=== PATIENT | female | born 1950 | race Caucasian/White ===

== ENCOUNTER 2017-07-14 05:26 | Day surgery (SDC) | payer MEDICARE, OTHER, SELFPAY ==
[2017-07-14] VITALS (7 sets, daily range): BP systolic 76–119; BP diastolic 37–70; PULSE 52–69; RESP 16–65; TEMP 36.1–36.8; O2SAT 95–98; BMI 28.6
--- NOTE | 2017-07-14 06:05 | PCM.HP.STD ---
Problem List (1) Family history of colon cancer in mother Status: Acute History of Present Illness Date of Admission: 07/14/17 The patient is a 67 year old F who presents for screening colonoscopy. She has had 2 previous colonoscopies. Approximately in 2004 and in 2011. She states I performed both those for her. She has a family history of colon cancer in her mother. The patient denies any abdominal pain. No bright red blood per rectum or melena. No unexpected weight loss. She otherwise has been enjoying good current health. Past Medical History Allergies latex Allergy (Verified 07/06/17 08:41) Rash Penicillins Allergy (Verified 07/06/17 08:41) Nausea/Vom/Diarrhea Home Medications: Ambulatory Orders Medication Instructions Recorded Ascorbic Acid [Vitamin C] 500 mg PO DAILY 07/06/17 Aspirin E.C. [Ecotrin] 325 mg PO DAILY@0800 07/06/17 Ca/D3/Mag Ox/Zinc/Trim Stencil Maker/Laureano/Bor 2 each PO DAILY 07/06/17 [Calcium [id number]-[id number] [facility] Tb] Cholecalciferol (VIT D3) [Vitamin 2,000 unit PO DAILY 07/06/17 D] Diltiazem CD [Cardizem CD] 240 mg PO DAILY 07/06/17 Docusate Sodium [Stool Softener] 100 mg PO DAILY 07/06/17 Fluoxetine [Prozac] 10 mg PO DAILY 07/06/17 Lisinopril [Prinivil] 10 mg PO DAILY 07/06/17 Methylcellulose [Fiber Therapy] 500 mg PO DAILY 07/06/17 Multivit with Calcium,Iron,Min 1 each PO DAILY 07/06/17 [Multiple Vitamins For Women] Naproxen Sodium [Aleve] 220 mg PO BID 07/06/17 Potassium 595 mg PO DAILY 07/06/17 Simvastatin [Zocor] 40 mg PO QHS 07/06/17 Ubidecarenone [Coq10] 100 mg PO DAILY 07/06/17 Vitamin E 400 unit PO DAILY 07/06/17 Smoking Status: Never smoker Review of Systems Constitutional: Denies: Weight Change Eyes: Denies: Blurred vision, Vision Change HEENT: Denies: Ear Pain, Eye Pain Cardiovascular: Denies: Chest Pain, Claudication Respiratory: Denies: Cough, Shortness of Breath Gastrointestinal: Denies: Hematemesis, Hematochezia Genitourinary: Denies: Dysuria, Hematuria Musculoskeletal: Denies: Leg Pain Skin: Denies: Jaundice Neurological: Denies: Confusion Psychiatric: Denies: Depression Endocrine: Denies: Change in Body Habitus Hematologic/ Lymphatic: Denies: Easy Bleeding VTE Information - Inpt Only VTE Present on Admission: No Patient Problems: Active and Suspected Problems Family history of colon cancer in mother (Acute) - Physical Exam General: Alert, Oriented x3, Cooperative HEENT: Atraumatic Oral: Moist Mucosa Neck: Supple Lungs: Clear to auscultation Cardiovascular: Regular rate Abdomen: Bowel Sounds Present Extremities: No clubbing Skin: No rashes Musculoskeletal: No Tenderness to Palpation of Joints or Extremities Neurological: Cranial nerves II-XII grossly intact Psych/Mental Status: Normal Affect Assessment/Plan Active and Suspected Problems Family history of colon cancer in mother (Acute) I am recommending a screening colonoscopy and we have discussed the technique, benefits, risks, alternatives. She has had an opportunity to ask and have questions answered. We will proceed at her discretion. John Talley M.D., F.A.C.S.
--- NOTE | 2017-07-14 06:08 | HP.PCM_ITS ---
Problem List (1) Family history of colon cancer in mother Status: Acute History of Present Illness Date of Admission: 07/14/17 The patient is a 67 year old F who presents for screening colonoscopy. She has had 2 previous colonoscopies. Approximately in 2004 and in 2011. She states I performed both those for her. She has a family history of colon cancer in her mother. The patient denies any abdominal pain. No bright red blood per rectum or melena. No unexpected weight loss. She otherwise has been enjoying good current health. Past Medical History Allergies latex Allergy (Verified 07/06/17 08:41) Rash Penicillins Allergy (Verified 07/06/17 08:41) Nausea/Vom/Diarrhea Home Medications: Ambulatory Orders Medication Instructions Recorded Ascorbic Acid [Vitamin C] 500 mg PO DAILY 07/06/17 Aspirin E.C. [Ecotrin] 325 mg PO DAILY@0800 07/06/17 Ca/D3/Mag Ox/Zinc/Exceptional Children Teacher Assistant/Laureano/Bor 2 each PO DAILY 07/06/17 [Calcium [id number]-[id number] [facility] Tb] Cholecalciferol (VIT D3) [Vitamin 2,000 unit PO DAILY 07/06/17 D] Diltiazem CD [Cardizem CD] 240 mg PO DAILY 07/06/17 Docusate Sodium [Stool Softener] 100 mg PO DAILY 07/06/17 Fluoxetine [Prozac] 10 mg PO DAILY 07/06/17 Lisinopril [Prinivil] 10 mg PO DAILY 07/06/17 Methylcellulose [Fiber Therapy] 500 mg PO DAILY 07/06/17 Multivit with Calcium,Iron,Min 1 each PO DAILY 07/06/17 [Multiple Vitamins For Women] Naproxen Sodium [Aleve] 220 mg PO BID 07/06/17 Potassium 595 mg PO DAILY 07/06/17 Simvastatin [Zocor] 40 mg PO QHS 07/06/17 Ubidecarenone [Coq10] 100 mg PO DAILY 07/06/17 Vitamin E 400 unit PO DAILY 07/06/17 Smoking Status: Never smoker Review of Systems Constitutional: Denies: Weight Change Eyes: Denies: Blurred vision, Vision Change HEENT: Denies: Ear Pain, Eye Pain Cardiovascular: Denies: Chest Pain, Claudication Respiratory: Denies: Cough, Shortness of Breath Gastrointestinal: Denies: Hematemesis, Hematochezia Genitourinary: Denies: Dysuria, Hematuria Musculoskeletal: Denies: Leg Pain Skin: Denies: Jaundice Neurological: Denies: Confusion Psychiatric: Denies: Depression Endocrine: Denies: Change in Body Habitus Hematologic/ Lymphatic: Denies: Easy Bleeding VTE Information - Inpt Only VTE Present on Admission: No Patient Problems: Active and Suspected Problems Family history of colon cancer in mother (Acute) - Physical Exam General: Alert, Oriented x3, Cooperative HEENT: Atraumatic Oral: Moist Mucosa Neck: Supple Lungs: Clear to auscultation Cardiovascular: Regular rate Abdomen: Bowel Sounds Present Extremities: No clubbing Skin: No rashes Musculoskeletal: No Tenderness to Palpation of Joints or Extremities Neurological: Cranial nerves II-XII grossly intact Psych/Mental Status: Normal Affect Assessment/Plan Active and Suspected Problems Family history of colon cancer in mother (Acute) I am recommending a screening colonoscopy and we have discussed the technique, benefits, risks, alternatives. She has had an opportunity to ask and have questions answered. We will proceed at her discretion. John Talley M.D., F.A.C.S.
--- NOTE | 2017-07-14 06:49 | PCM.OPRPT ---
Problem List (1) Family history of colon cancer in mother Status: Acute Report of Operation Date of Procedure: 07/14/17 Pre-Operative Diagnosis: Family history of colon cancer in her mother Post-Operative Diagnosis: Extensive pancolonic diverticulosis Surgery/Procedure Performed:: Colonoscopy Description of Surgical Findings:: Timeout and informed consent was obtained. 67-year-old female was taken to the endoscopy suite. She was placed in a left lateral decubitus position. Throughout the procedure in aliquots she received a total of 100 mg Demerol and 3 mg Versed as intravenous sedation. Digital rectal exam performed. Grade 2 hemorrhoids. No mass lesions. Flexible colonoscope inserted in the rectum advanced through a tortuous sigmoid colon extensively involved with diverticulosis. The scope was then readily advanced to the transverse colon. With transabdominal pressure the scope was advanced to the cecum. The cecum and ileocecal valve area was nicely achieved. Bowel prep was good. The scope was carefully withdrawn from the ascending transverse descending and sigmoid colon. Scattered diverticulosis was noted throughout the colon. Extensive diverticular disease was noted of the descending and sigmoid colon. There is no evidence of acute inflammation. The scope was retroflexed within the rectum. Hemorrhoidal changes noted. No active bleeding. Excess fluid and air was aspirated free the procedure was completed with the patient tolerating it well. Impression Pancolonic diverticulosis. Extensive diverticular disease of the descending and sigmoid colon. Recommendations for follow-up colonoscopy in 5 years as previous colonoscopy had been 2012 John Talley M.D., F.A.C.S. Medications were given at 0627. Procedure initiated at 0630. Cecum reached at 0639.18. Procedure completed at 0646 Type of Anesthesia:: IV Sedation
== END 2017-07-14 07:40 | disposition home or self-care (01) ==
LOC: EN 05:27 → AC 05:28
PROVIDERS: Family Provider Internal Medicine; PCP Internal Medicine; Visit Provider Surgery
PROC: 0DJD8ZZ Inspection of Lower Intestinal Tract, Via Natural or Artificial Opening Endoscopic (ICD-10-PCS; CPT 45378; principal; 2017-07-14 06:25)
DX: Z12.11 Encounter for screening for malignant neoplasm of colon (principal); K57.30 Diverticulosis of large intestine without perforation or abscess without bleeding; K64.1 Second degree hemorrhoids; Z79.82 Long term (current) use of aspirin; Z79.1 Long term (current) use of non-steroidal anti-inflammatories (NSAID); Z79.899 Other long term (current) drug therapy; Z80.0 Family history of malignant neoplasm of digestive organs
CPT/HCPCS: G0105; J7120

== ENCOUNTER → 2017-11-03 11:50 | Outpatient (CLI) | payer MEDICARE, OTHER, SELFPAY ==
--- NOTE | 2017-11-03 11:52 | BI_ITS ---
MAMMOGRAPHY - BILATERAL SCREENING REASON FOR EXAM: Female, 67 years old. Routine annual screening examination. PERTINENT HISTORY: Aunt with breast cancer. TECHNIQUE: Digital bilateral breast dorothea (3D mammographic acquisition) in the CC and MLO projections. 2-D mediolateral oblique (MLO) and craniocaudad (CC) views of both breasts were obtained. CAD: Full Field Digital Mammography with Computer Added Detection was performed. COMPARISON: Comparison is made with prior study dated October 10, 2016 and October 07, 2015. FINDINGS: Breast Composition: The breasts are almost entirely fatty. There are no dominant masses or suspicious calcifications. Stable bilateral benign appearing axillary lymph nodes. No other significant abnormalities are identified. There has been no significant change since the prior study. BI/SCREENING MAMM (CAD), BILAT IMPRESSION: Stable bilateral screening mammogram. Yearly follow-up mammogram recommended. (A) ASSESSMENT CATEGORY: BIRADS Category 2: Benign. A letter regarding these results will be sent to the patient by the facility within 30 days. Approximately 10% of breast cancers are not detected by mammography. A normal mammogram should not delay biopsy of a clinically suspicious abnormality. [id number] Electronically Signed: Naldo Santos MD at 14:11 EDT Tel [phone], Service support ,
== END ==
PROVIDERS: Family Provider Internal Medicine; PCP Internal Medicine; Visit Provider Internal Medicine
DX: Z12.31 Encounter for screening mammogram for malignant neoplasm of breast (principal)
CPT/HCPCS: 77063; 77067

== ENCOUNTER 2018-08-13 14:54 | Inpatient (IN) | payer MEDICARE, OTHER, SELFPAY ==
[2018-08-13 15:04] VITALS: BP 162/73; PULSE 56; RESP 18; TEMP 36.4; O2SAT 100; BMI 29.9
--- NOTE | 2018-08-13 15:53 | CT_ITS ---
STUDY: CT BRAIN WITHOUT CONTRAST REASON FOR EXAM: Female, 68 years old. Vertigo dizziness and vomiting RADIATION DOSAGE (If Supplied By Facility): CTDIvol = ( 44.99 ) mGy, DLP = ( 779.24 ) mGycm TECHNIQUE: Transaxial CT imaging of the brain was performed without administration of intravenous contrast material. Individualized dose optimization techniques were used for this CT. COMPARISON: No relevant priors. FINDINGS: Normal soft tissue structures. Normal calvarium. There is mild cerebral atrophy with widening of the extra-axial spaces and ventricular dilatation. There are areas of decreased attenuation within the white matter tracts of the supratentorial brain, consistent with microvascular disease changes. Normal basal ganglia and thalami. Normal brainstem. Normal cerebellum. There is no intracranial hemorrhage. There are no findings of an acute ischemic infarction. There is mucosal thickening of the right maxillary sinus. CT/Brain/Head without Contrast IMPRESSION: Chronic involutional changes of the brain. Chronic right maxillary sinusitis. There is no intracranial hemorrhage or evidence of acute infarct. Electronically Signed: Nader Interiano MD at 17:01 EDT , Service support ,
--- NOTE | 2018-08-13 15:54 | EKG12_ITS ---
Test Reason : ILLNESS Blood Pressure : / mmHG Vent. Rate : 057 BPM Atrial Rate : 057 BPM P-R Int : 202 ms QRS Dur : 082 ms QT Int : 460 ms P-R-T Axes : 019 -07 008 degrees QTc Int : 447 ms Sinus bradycardia Cannot rule out Anterior infarct , age undetermined Abnormal ECG Confirmed by INDIA MCGINNIS, RADHA ([id number]), editor in chief SERE SPICER ([id number]) on 08/15/2018 1:30:29 PM Referred By: TRUNG Confirmed By:RADHA OSBORNE MD
--- NOTE | 2018-08-13 15:55 | ED.VISSUMM ---
- ER Visit Summary Date of Service: 08/13/18 Chief Complaint: Vertigo History of Present Illness: The patient is a 68 F sudden onset with vertigo with spinning sensation after finishing with a massage at 1:30 PM. Reports was getting dressed when symptoms occurred. Nausea and vomiting approximately 4 times no hematemesis. History of similar however has been 40 years. Not a diabetic. No history of strokes in the past. EMS reports blood pressures systolics 70s status post 400 cc of normal saline bolus. She thinks they may have given her also Zofran. No recent sinus infection no tinnitus. No fevers. No visual changes. States has urine urgency. No chest pains or abdominal pains. Physical Examination: General: Alert and oriented ?3, no acute distress HEENT: Normocephalic, atraumatic. Moist mucosa membranes Neck: supple, nontender. Cardiovascular: Regular rate and rhythm, no murmurs Respiratory: Normal breath sounds, symmetric, no distress Abdomen: Soft, nontender, nondistended Extremities: Nontender, no edema, pulses intact ?4 Neuro: NIH equals 1 for being off on the month stating it was September, positive [place]-Hallpike on the right. Test Results: Patient presents with EKG sinus bradycardia rate of 57. No ST changes. T wave inversions in inferior leads. Hemoglobin 12.9. Potassium 3.8. Creatinine 0.95. Urine ketones 1+ bacteria negative leukocytes and nitrites and white blood cells. CT head no acute process. Emergency Department Course and Treatment: Patient presents with symptoms of vertigo, she had an age of 1, she had a positive [place]-Hallpike on the right. Have she is vomiting after evaluation. Additional Phenergan IV fluids. Labs stable. Urine negative. EKG sinus. CT head negative. Initially given Phenergan she did have improvement of symptoms, however upon attempted ambulation standing she became symptomatic again. We will try Antivert p.o. Due to continued symptomatic, I do feel she would benefit from hospitalization. Spoke with Dr. Carpio for admission. PCP will be contacted for update. Treatment Plan: [] Disposition: Admission Impression: Symptomatic vertigo This note was generated with [employer]Frame Digitalation software. It may contain incorrect words, spelling, and punctuation that were not noted in review of the chart prior to signing ED Disposition - Plan for ED Patient: Disposition: Acute Care Hospital [facility] Diagnosis: Symptomatic vertigo Referrals: Cassy Amezquita DO [Primary Care Provider] -
[2018-08-13] MEDS: proMETHazine 25 MG/ML Syringe 6.25 MG IV (16:03)
[2018-08-13] MEDS: 0.9% Normal Saline 1,000 ML 1000 ML IV (16:03)
[2018-08-13 16:34] LABS: Mucous, Urine 0 SEEN /hpf (<or=2+); Red Blood Cells-Urine 0 SEEN /hpf (0-5); Squamous Epithelial Cells - UA 0 SEEN /hpf (5-10)
[2018-08-13 16:37] LABS: Color, Urine Yellow (Yellow); Glucose, Dipstick Normal (Normal); Ketone-Dipstick 15 mg/dl (Negative); Leukocyte Esterase-Dipstick Negative /ul (Negative); Nitrite-Dipstick Negative (Negative); Occult Blood-Urine Negative /ul (Negative); Protein-Dipstick Negative (Negative); Specific Gravity, Urine 1.015 (1.002-1.030); Urine Bilirubin Dipstick Negative (Negative); Urine Clarity Cloudy (Clear); Urine Urobilinogen Normal (Normal)
[2018-08-13 16:43] LABS: Absolute Lymphocyte Count 1.21 X10^3/ul (0.83-4.51); Basophil# 0.01 X10^3/uL; Basophil% 0.1 % (0-1); Eosinophils% 1.5 % (0-5); Hematocrit 39.4 % (37-47); Hemoglobin 12.9 g/dl (12.0-15.0); Lymphocyte # 1.21 X10^3/ul (4.0); Lymphocyte % 17.9 % (19-41); Mean Corp Hgb Conc 32.7 g/gl (32-36); Mean Corpuscular Hgb 30.6 pg (27.0-32.0); Mean Corpuscular Volume 93.4 fL (81-99); Mean Platelet Vol. 11.1 fl (6.2-12.0); Monocyte# 0.47 X10^3/uL; Neutrophil # 4.95 X10^3/uL (2.7-7.7); Neutrophil % 73.4 % (47-70); Platelet Count 151 K/mm3 (150-450); RBC Distribution Width CV 13.5 % (11.6-14.6); RBC Distribution Width SD 46.2 fl (35.1-43.9); Red Blood Count 4.22 M/mm3 (4.2-5.4); White Blood Count 6.8 K/mm3 (4.4-11.0)
[2018-08-13 16:45] LABS: POSITIVE COUNT NO; POSITIVE DIFFERENTIAL NO; POSITIVE MORPHOLOGY NO
[2018-08-13 16:52] LABS: Anion Gap 7 (5-15); BUN 31 mg/dL (7-18); BUN/Creat Ratio 32.7 RATIO (10-20); Calcium,Total 9.2 mg/dL (8.5-10.1); Chloride 111 mmol/L (98-107); Creatinine, Serum 0.95 mg/dL (0.55-1.02); EST Glomerular Filtration Rate 62 mL/min (>60); Est Glom Filt Rate - Afr Amer 75 mL/min (>60); Estimated Creatinine Clearance 49.58 ml/min; Glucose 100 mg/dL (74-106); Potassium 3.8 mmol/L (3.5-5.1); Sodium Level 143 mmol/L (136-145)
[2018-08-13 16:53] LABS: International Normalized Ratio 1.1; Prothrombin Time (Protime)PT. 14.4 SECONDS (11.7-14.9)
[2018-08-13 16:54] LABS: Partial Thromboplast Time 29.5 Seconds (24.1-36.2)
[2018-08-13 17:11] LABS: Amorphous Sediment 1+; Bacteria 1+ /hpf (None Seen); White Blood Cells 0-5 SEEN /hpf (0-5)
[2018-08-13 17:43] VITALS: BP 151/74; PULSE 60; RESP 10; O2SAT 97
--- NOTE | 2018-08-13 17:50 | HP.PCM_ITS ---
Problem List (1) Vertigo Status: Acute (2) HTN (hypertension) Status: Chronic Qualifiers: Hypertension type: essential hypertension Qualified Code(s): I10 - Essential (primary) hypertension (3) HLD (hyperlipidemia) Status: Chronic Qualifiers: Hyperlipidemia type: pure hypercholesterolemia Qualified Code(s): E78.00 - Pure hypercholesterolemia, unspecified; E78.0 - Pure hypercholesterolemia (4) Obesity Status: Chronic Qualifiers: Obesity type: due to excess calories Obesity classification: adult class 1 (BMI 30 - 34.9) History of Present Illness Date of Admission: 08/13/18 Chief Complaint: Vertigo The patient is a 68 y/o F w/ PMHx: Obesity, HTN, HLD, Anxiety and Depression, Prior Vertigo episode remotely who presents to the [facility] ED on 08/13/18 with history of onset approximately 1:30 PM following finishing of a massage notable vertigo, room spinning sensation with nausea and emesis resulting in inability to ambulate secondary to severity of symptoms. She denies any recent illnesses or upper respiratory infections. She states that she did have a similar near exact presentation approximately 40 years prior and this is very consistent. She notes that in the past she had taken meclizine and that this did resolve her symptoms. In the ED even attempts at patient trying to get up to use the restroom unsuccessful and unable to use the bedpan therefore Frye catheter placed. Work-up in the ED included T 97.6, heart rate 56, BP 162/73, respiratory rate 18, 100% on room air, CBC with WBC 6.8, heme globin 12.9, platelet 151 without market shift, unremarkable coags, BMP not marked appearing, urinalysis unremarkable, DT brain with chronic involutional changes, chronic right axillary sinusitis, no intracranial hemorrhage or evidence of acute infarction, EKG with sinus rhythm with no acute evidence of ischemia. In the ED patient ministered normal saline, Phenergan, meclizine with some improvement but still notable vertiginous symptoms with nausea and vomiting. Patient unable to ambulate secondary to severity of the vertigo. Seth-Hallpike maneuvering was performed in the ED with recurrent symptoms. Past Medical History Past Medical History (Chronic Problems): Chronic Problems (Last Updated 10/18/17 @ 09:45 by Starr Palma) HTN (hypertension) (Chronic) HLD (hyperlipidemia) (Chronic) Obesity (Chronic) Medical History: Medical History (Last Updated 10/18/17 @ 09:45 by Starr Palma) Back pain M54.9 Fatigue R53.83 Hx of hysterectomy Z90.710 Hypertension I10 Allergies latex Allergy (Verified 10/18/17 09:37) Rash Penicillins Allergy (Verified 10/18/17 09:37) Nausea/Vom/Diarrhea Home Medications: Ambulatory Orders Medication Instructions Recorded Ascorbic Acid [Vitamin C] 500 mg PO DAILY 07/06/17 Aspirin E.C. [Ecotrin] 325 mg PO DAILY@0800 07/06/17 Ca/D3/Mag Ox/Zinc/Jewel Blocker And Sawyer/Laureano/Bor 1 ea PO BID 07/06/17 [Calcium 998-T8-Pkwsscku [facility] Tb] Cholecalciferol (VIT D3) [Vitamin 1,000 unit PO DAILY 07/06/17 D] Diltiazem CD [Cardizem CD] 240 mg PO DAILY 07/06/17 Fluoxetine [Prozac] 10 mg PO DAILY 07/06/17 Lisinopril [Prinivil] 10 mg PO DAILY 07/06/17 Methylcellulose [Fiber Therapy] 500 mg PO DAILY 07/06/17 Multivit with Calcium,Iron,Min 1 ea PO DAILY 07/06/17 [Multiple Vitamins For Women] Potassium 595 mg PO DAILY 07/06/17 Simvastatin [Zocor] 40 mg PO QHS 07/06/17 Docusate Sodium [Colace] 100 mg PO DAILY 08/13/18 Naproxen Sodium [Aleve] 220 mg PO BID 08/13/18 Vitamin E 400 unit PO DAILY 08/13/18 Surgical History: Surgical History (Last Updated 10/18/17 @ 09:46 by Starr Palma) Hx of foot surgery Z98.890 Surgical History: - - Hysterectomy, right foot surgery. 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 Paternal Family History: Family History (Last Updated 10/18/17 @ 09:46 by Starr Palma) Other Alzheimer disease Cancer History Items: - - Patient notes a paternal family history of Alzheimer's disease. Review of Systems Constitutional: Reports: Anorexia, Malaise, Weakness, Fatigue. Denies: Chills, Fever, Weight Change HEENT: Reports: - - Vertigo.. Denies: Head Aches, Sinus Congestion, Sinus Drainage Cardiovascular: Denies: Chest Pain, Palpitations Respiratory: Denies: Cough, Shortness of breath at rest, Sputum production Gastrointestinal: Reports: Nausea, Vomiting. Denies: Abdominal Pain Genitourinary: Denies: Dysuria Musculoskeletal: Denies: Joint Pain, Joint Tenderness Skin: Denies: Rash, Wounds Neurological: Reports: - - Vertiginous symptoms.. Denies: Focal weakness, Numbness, Tingling Psychiatric: Denies: Anxiety, Depression, Homicidal Ideations, Suicidal Ideations Hematologic/ Lymphatic: Denies: Easy Bruising, Easy Bleeding VTE Information - Inpt Only VTE Present on Admission: No VTE Mechan Device Prophylaxis: SCD's VTE Pharm Prophylaxis ordered?: Yes Patient Problems: Active and Suspected Problems (Last Updated 10/18/17 @ 09:45 by Starr Palma) Vertigo (Acute) Subjective: Laying in the ED bed, ill-appearing, cloth on her head, onset of nausea with vertiginous symptoms with minimal head movement still although has improved mildly since initial presentation she notes Objective: Physical Examination: General: awake, alert, oriented x 3 and cooperative, seated upright in the ED bed him a fatigued, ill-appearing. Skin: normal color, turgor, no icterus, cyanosis. HEENT: AT/NC, EOMI, PERRLA, dry MM, no carotid bruits or JVD noted. Lungs: CTA bilaterally, moderate effort, mild decrease BL bases, no rales, ronchi or wheezing. Heart: Regular rate and rhythm; no gallop, rub audible. Abdomen: soft, obese, NTTP, ND, normal BS, no HSM. Extremities: no cyanosis, clubbing, or edema. Neurological: patient awake, alert, oriented x 3; cognitive function intact; pupils equally reactive to light and accomodation; cranial nerves II-XII grossly normal, moving all 4 extremities although limited given severity of vertigo, no focal deficits, strength severely global decrease secondary to acute presentation, + DM w/ reproducible symptoms with onset unfortunately of nausea and emesis. Psychiatric: affect appears fatigued, flat, no acute evidence of depressive or anxiety feelings. - Physical Exam Vital Signs Temp Pulse Resp BP Pulse Ox 97.6 F L 60 10 L 151/74 H 97 08/13/18 15:04 08/13/18 17:43 08/13/18 17:43 08/13/18 17:43 08/13/18 17:43 Oxygen Delivery Method Room Air Weight: 180 lb 5.763 oz Body Mass Index (BMI) 29.9 Laboratory Tests Past 24 Hrs 08/13/18 08/13/18 08/13/18 16:20 16:30 16:30 WBC 6.8 RBC 4.22 Hgb 12.9 Hct 39.4 MCV 93.4 MCH 30.6 MCHC 32.7 RDW 13.5 RDW Differential 46.2 H Plt Count 151 MPV 11.1 Immature Gran % (Auto) 0.100 Neut % (Auto) 73.4 H Lymph % (Auto) 17.9 L Stanley % (Auto) 7.0 Eos % (Auto) 1.5 Baso % (Auto) 0.1 Absolute Neuts (auto) 5.0 Absolute Lymphs (auto) 1.21 Total Counted Not Reportable PT 14.4 INR 1.1 APTT 29.5 Sodium Potassium Chloride Carbon Dioxide Anion Gap BUN Creatinine Estim Creat Clear Calc Est GFR (MDRD) Af Amer Est GFR (MDRD) Non-Af BUN/Creatinine Ratio Glucose Calcium Urine Color Yellow Urine Clarity Cloudy Urine pH 8.0 Ur Specific [place] 1.015 Urine Protein Negative Urine Glucose (UA) Normal Urine Ketones 15 H Urine Occult Blood Negative Urine Nitrite Negative Urine Bilirubin Negative Urine Urobilinogen Normal Ur Leukocyte Esterase Negative Urine RBC 0 SEEN Urine WBC 0-5 SEEN Ur Squamous Epith Cells 0 SEEN Amorphous Sediment 1+ Urine Bacteria 1+ Urine Mucus 0 SEEN 08/13/18 16:30 WBC RBC Hgb Hct MCV MCH MCHC RDW RDW Differential Plt Count MPV Immature Gran % (Auto) Neut % (Auto) Lymph % (Auto) Stanley % (Auto) Eos % (Auto) Baso % (Auto) Absolute Neuts (auto) Absolute Lymphs (auto) Total Counted PT INR APTT Sodium 143 Potassium 3.8 Chloride 111 H Carbon Dioxide 25.0 Anion Gap 7 BUN 31 H Creatinine 0.95 Estim Creat Clear Calc 49.58 Est GFR (MDRD) Af Amer 75 Est GFR (MDRD) Non-Af 62 BUN/Creatinine Ratio 32.7 H Glucose 100 Calcium 9.2 Urine Color Urine Clarity Urine pH Ur Specific [place] Urine Protein Urine Glucose (UA) Urine Ketones Urine Occult Blood Urine Nitrite Urine Bilirubin Urine Urobilinogen Ur Leukocyte Esterase Urine RBC Urine WBC Ur Squamous Epith Cells Amorphous Sediment Urine Bacteria Urine Mucus Assessment/Plan All Active Problems (Last Updated 10/18/17 @ 09:45 by Starr Palma) Vertigo (Acute) UTI (urinary tract infection) (Acute) Family history of colon cancer in mother (Acute) The patient is a 68 y/o F w/ PMHx: Obesity, HTN, HLD, Anxiety and Depression, Prior Vertigo episode remotely who presents to the [facility] ED on 08/13/18 with history of onset approximately 1:30 PM following finishing of a massage notable vertigo, room spinning sensation with nausea and emesis resulting in inability to ambulate secondary to severity of symptoms. (1) Vertigo: Prior similar episode remotely, suspect BPPV. Work-up in the ED included T 97.6, heart rate 56, BP 162/73, respiratory rate 18, 100% on room air, CBC with WBC 6.8, heme globin 12.9, platelet 151 without market shift, unremarkable coags, BMP not marked appearing, urinalysis unremarkable, DT brain with chronic involutional changes, chronic right axillary sinusitis, no intracranial hemorrhage or evidence of acute infarction, EKG with sinus rhythm with no acute evidence of ischemia. Will admit to [facility], maintain on fall pre cautions, continue treatment with scheduled meclizine, PRN zofran and phenergan, IVFs, PT/consultation to ascertain stability and discharge needs. If vertigo not improving w/ this regimen would obtain MRI Brain. (2) Hypertension: Continue home regimen including Cardizem, lisinopril, PRN hydralazine. (3) Hyperlipidemia: Continue home statin regimen. (4) Anxiety and depression: Will continue home Prozac regimen. (5) Obesity: Weight loss and lifestyle changes encouraged, nutrition consulted. (6) Suspected GRAY: Trending pulse ox requested, will need assistance with outpatient sleep study set up. (7) DVT prophylaxis: SCDs, Lovenox. Code Visit OBSV E&M: 08510 Initial observation care L3
[2018-08-13] MEDS: Meclizine HCl 25 MG Tablet PO ×2 (17:54→21:19)
--- NOTE | 2018-08-13 18:16 | CASEMGMT ---
RN CM Assessment Introduced role of RN CM to patient, patient and daughter at bedside.? Patient is alert, oriented and able?to participate in RN CM Assessment. ?Care providers, pharmacy, and demographics verified. Presentation: Dizziness Admit Dx: Vertigo Re-Admit: No Barriers/Issues: None PCP: Cassy Amezquita Specialists: Pain- Dr Lobato Preferred [facility]acy: [facility] Insurance: [employer], [employer] Benefit:?Yes LNOK: Ryan Verduzco LW/HPOA: Yes, HPOA- Ryan Verduzco Living Arrangements:? Lives with in a Tri level home, no steps to enter ADL?s: Independent with ambulation and ADL's Transportation: Patient drives, to transport upon DC DME: [employer] HHC: None SNF: None Goal: Home DC PLAN: Home with no anticipated needs identified at this time. Carissa Malone RNCM
--- NOTE | 2018-08-13 18:40 | ED.RN ---
pt unable to void on bedpan and unable to get up d/t vertigo. order received for de oliveira if unable to go
[2018-08-13 20:50] VITALS: BP 135/70; PULSE 58; RESP 16; TEMP 36.9; O2SAT 92; BMI 30.7
[2018-08-13 21:07] LABS: Magnesium 2.1 mg/dL (1.6-2.6)
[2018-08-13] MEDS: Atorvastatin Calcium 20 MG Tablet PO (21:19)
[2018-08-13] MEDS: 0.9% Normal Saline 1,000 ML 100 ML IV (21:19)
[2018-08-13 23:20] VITALS: PULSE 59; O2SAT 95
[2018-08-14 03:15] VITALS: BP 132/73; PULSE 60; RESP 16; TEMP 36.6; O2SAT 96
[2018-08-14] MEDS: Meclizine HCl 25 MG Tablet PO ×3 (05:27→21:36)
[2018-08-14 06:40] LABS: Absolute Lymphocyte Count 1.54 X10^3/ul (0.83-4.51); Absolute Neutrophil Count 4.5 X10^3/uL (2.0-7.7); Basophil# 0.01 X10^3/uL; Basophil% 0.1 % (0-1); Eosinophil# 0.09 X10^3/uL; Eosinophils% 1.3 % (0-5); Hematocrit 39.2 % (37-47); Hemoglobin 12.5 g/dl (12.0-15.0); Lymphocyte # 1.54 X10^3/ul (4.0); Lymphocyte % 22.6 % (19-41); Mean Corp Hgb Conc 31.9 g/gl (32-36); Mean Corpuscular Hgb 30.4 pg (27.0-32.0); Mean Corpuscular Volume 95.4 fL (81-99); Mean Platelet Vol. 11.8 fl (6.2-12.0); Monocyte# 0.64 X10^3/uL; Monocyte% 9.4 % (0-10); Neutrophil # 4.53 X10^3/uL (2.7-7.7); Neutrophil % 66.5 % (47-70); POSITIVE COUNT NO; POSITIVE DIFFERENTIAL NO; POSITIVE MORPHOLOGY NO; Platelet Count 156 K/mm3 (150-450); RBC Distribution Width SD 48.3 fl (35.1-43.9); Red Blood Count 4.11 M/mm3 (4.2-5.4); White Blood Count 6.8 K/mm3 (4.4-11.0)
[2018-08-14 06:56] LABS: Anion Gap 5 (5-15); BUN 20 mg/dL (7-18); BUN/Creat Ratio 22.2 RATIO (10-20); Calcium,Total 8.6 mg/dL (8.5-10.1); Chloride 115 mmol/L (98-107); EST Glomerular Filtration Rate 66 mL/min (>60); Est Glom Filt Rate - Afr Amer 80 mL/min (>60); Estimated Creatinine Clearance 50.23 ml/min; Glucose 81 mg/dL (74-106); Potassium 4.1 mmol/L (3.5-5.1); Sodium Level 148 mmol/L (136-145)
[2018-08-14 07:08] VITALS: O2SAT 94
[2018-08-14] MEDS: 0.9% Normal Saline 1,000 ML 100 ML IV ×2 (07:13→18:49)
--- NOTE | 2018-08-14 08:03 | MRI_ITS ---
STUDY: MRA NECK WITH AND WITHOUT CONTRAST REASON FOR EXAM: Female, 68 years old. Vertigo, nausea and vomiting for 2 days TECHNIQUE: 3-D obfk-zt-zjfukf (TOF) imaging was performed in an 1.5 T MRI scanner. 16 IV Dotarem was administered for the contrast enhanced images. COMPARISON: None. FINDINGS: RIGHT CAROTID ARTERIES: Normal right common carotid artery (CCA). Normal right common carotid bulb. Normal origin of the right internal carotid (ICA) artery without a hemodynamically significant stenosis. Normal visualized cervical portion of the right internal carotid artery. Normal origin of the right external carotid artery (ECA). LEFT CAROTID ARTERIES: Normal left common carotid artery (CCA). Normal left common carotid bulb. Normal origin of the left internal carotid (ICA) artery without a hemodynamically significant stenosis. Normal visualized cervical portion of the left internal carotid artery. Normal origin of the left external carotid artery (ECA). VERTEBRAL ARTERIES: Normal antegrade flow within the bilateral vertebral artery without a hemodynamically significant stenosis. MRI/MRA Neck WITH and W/O Contrast IMPRESSION: Normal bilateral cervical carotid and vertebral arteries. Electronically Signed: Tye Jorgensen MD at 10:45 EDT Tel , Service support ,
--- NOTE | 2018-08-14 08:03 | MRI_ITS ---
STUDY: MRA OF THE HEAD WITHOUT CONTRAST REASON FOR EXAM: Female, 68 years old. Vertigo with nausea and vomiting for 2 days TECHNIQUE: 3-D ftdu-fi-hvdzas (TOF) imaging was performed with MIPs. The study was performed unenhanced. COMPARISON: 12/08/2014 FINDINGS: Normal bilateral petrous carotid arteries. Normal right cavernous carotid artery with a normal supraclinoid bifurcation. Normal left cavernous carotid artery with a normal supraclinoid bifurcation. Normal right A1 segments of the anterior cerebral artery. Normal left A1 segments of the anterior cerebral artery. Normal intact anterior communicating artery (ACOM). Normal bilateral A2 segments of the anterior cerebral arteries. Normal right M1 and M2 segments of the middle cerebral arteries, with a normal M1 bifurcation. Normal left M1 and M2 segments of the middle cerebral arteries, with a normal M1 bifurcation. Normal right posterior communicating artery (PCOM). Normal left posterior communicating artery (PCOM). Normal bilateral vertebral arteries. Normal basilar artery with a normal basilar bifurcation. The visualized bilateral superior cerebellar (SCA) arteries are normal. Normal bilateral P1, P2 and visualized P3 segments of the posterior cerebral arteries. There is no demonstrated aneurysm of the venetie ira of [place]. There is no major vessel occlusion or hemodynamically significant stenosis. There is no demonstrated abnormality of the visualized brain. MRI/MRA Head ONLY without Contrast IMPRESSION: Normal MRA of the head Electronically Signed: Tye Jorgensen MD at 10:43 EDT Tel , Service support ,
--- NOTE | 2018-08-14 08:03 | MRI_ITS ---
STUDY: MRI BRAIN WITHOUT CONTRAST REASON FOR EXAM: Female, 68 years old. Vertigo with nausea and vomiting for 2 days TECHNIQUE: Standardized multiplanar fat and water weighted pulse sequences were obtained. COMPARISON: CT 12/13/2018 FINDINGS: Normal size of the ventricles and extra-axial spaces for the patient's age. There are a limited number of small white matter hyperintensities, distributed throughout the deep white matter tracts of the cerebral hemispheres, consistent with mild chronic white matter ischemic changes. Normal bilateral basal ganglia. Normal thalami. There is no extra-axial fluid accumulation. Normal flow voids within the major intracranial circulation suggesting patency by spin echo criteria. Normal sella turcica, pituitary gland, infundibular stalk, optic chiasm and hypothalamus. Normal tectal plate and pineal gland. Normal midbrain, monserrat and medulla. Normal cerebellum. Normal basal cisterns. Normal bilateral temporal bones. Normal bilateral internal auditory canals. There are bilateral ocular lens implants with otherwise normal intraorbital contents. Normal visualized paranasal sinuses. Normal calvarium and skull base. Normal visualized soft tissue structures. Normal visualized upper cervical spine. MRI/Brain without Contrast IMPRESSION: No evidence of acute infarct or hemorrhage. Electronically Signed: Tye Jorgensen MD at 10:41 EDT Tel , Service support ,
[2018-08-14] MEDS: Aspirin E.C. 325 MG Tablet PO (08:10)
[2018-08-14 09:15] VITALS: BP 126/68; PULSE 60; RESP 16; TEMP 36.3; O2SAT 98
[2018-08-14] MEDS: 0.9% NaCl Peripheral Flush Adult/Peds IV (10:38)
[2018-08-14] MEDS: Enoxaparin 40 MG/0.4 ML Syringe SC (10:39)
[2018-08-14] MEDS: Lisinopril 10 MG Tablet PO (10:39)
[2018-08-14] MEDS: FLUoxetine 10 MG Capsule PO (10:39)
[2018-08-14] MEDS: dilTIAZem CD 240 MG Capsule PO (10:39)
[2018-08-14] MEDS: Docusate Sodium 100 MG Capsule PO (10:40)
[2018-08-14 15:06] VITALS: BP 115/59; PULSE 61; RESP 16; TEMP 37; O2SAT 98
--- NOTE | 2018-08-14 15:14 | PCM.PN.HOSP ---
Patient Problems: Active and Suspected Problems (Last Updated 10/18/17 @ 09:45 by Starr Palma) Vertigo (Acute) Subjective: Patient is a 68-year-old lady with multiple comorbidities who presented with vertigo associated with nausea and emesis with difficulty ambulating. Admitted to regular nursing floor for symptomatic management Objective: GENERAL: cooperative HEENT: Atraumatic; moist oral mucosa EYES; Anicteric, Normal Conjunctiva NECK; supple, normal thyroid, no distended JVD. RESPIRATORY: Diminished to auscultation bilaterally, CARDIOVASCULAR: Regular S1 S2, no audible murmurs GI: soft, non-tender, normoactive bowel sounds, : No Renal angle tenderness; EXTREMITIES: No edema, no clubbing, no cyanosis. NEURO: Awake; no lateralizing signs. SKIN: No Rash PSYCH; Normal affect Vitals/I&O's: Vital Signs Temp Pulse Resp BP Pulse Ox 98.6 F 61 16 115/59 L 98 08/14/18 15:06 08/14/18 15:06 08/14/18 15:06 08/14/18 15:06 08/14/18 15:06 Oxygen Delivery Method Room Air Weight: 81.278 kg Body Mass Index (BMI) 30.7 Intake and Output for Last 24 Hours 08/12/18 08/13/18 08/14/18 23:59 23:59 23:59 Intake Total 206 / 206 2260 / 2260 Output Total 950 / 950 1175 / 1175 Balance -744 / -744 1085 / 1085 Laboratory Results 08/13/18 16:20: Urine Color Yellow, Urine Clarity Cloudy, Urine pH 8.0, Ur Specific [place] 1.015, Urine Protein Negative, Urine Glucose (UA) Normal, Urine Ketones 15 H, Urine Occult Blood Negative, Urine Nitrite Negative, Urine Bilirubin Negative, Urine Urobilinogen Normal, Ur Leukocyte Esterase Negative, Urine RBC 0 SEEN, Urine WBC 0-5 SEEN, Ur Squamous Epith Cells 0 SEEN, Amorphous Sediment 1+, Urine Bacteria 1+, Urine Mucus 0 SEEN 08/13/18 16:30: WBC 6.8, RBC 4.22, Hgb 12.9, Hct 39.4, MCV 93.4, MCH 30.6, MCHC 32.7, RDW 13.5, RDW Differential 46.2 H, Plt Count 151, MPV 11.1, Immature Gran % (Auto) 0.100, Neut % (Auto) 73.4 H, Lymph % (Auto) 17.9 L, [place] % (Auto) 7.0, Eos % (Auto) 1.5, Baso % (Auto) 0.1, Absolute Neuts (auto) 5.0, Absolute Lymphs (auto) 1.21, Total Counted Not Reportable 08/13/18 16:30: PT 14.4, INR 1.1, APTT 29.5 08/13/18 16:30: Sodium 143, Potassium 3.8, Chloride 111 H, Carbon Dioxide 25.0, Anion Gap 7, BUN 31 H, Creatinine 0.95, Estim Creat Clear Calc 49.58, Est GFR (MDRD) Af Amer 75, Est GFR (MDRD) Non-Af 62, BUN/Creatinine Ratio 32.7 H, Glucose 100, Calcium 9.2 08/13/18 16:30: Magnesium 2.1 08/14/18 05:30: WBC 6.8, RBC 4.11 L, Hgb 12.5, Hct 39.2, MCV 95.4, MCH 30.4, MCHC 31.9 L, RDW 14.0, RDW Differential 48.3 H, Plt Count 156, MPV 11.8, Immature Gran % (Auto) 0.100, Neut % (Auto) 66.5, Lymph % (Auto) 22.6, [place] % (Auto) 9.4, Eos % (Auto) 1.3, Baso % (Auto) 0.1, Absolute Neuts (auto) 4.5, Absolute Lymphs (auto) 1.54, Total Counted Not Reportable 08/14/18 05:30: Sodium 148 H, Potassium 4.1, Chloride 115 H, Carbon Dioxide 28.0, Anion Gap 5, BUN 20 H, Creatinine 0.90, Estim Creat Clear Calc 50.23, Est GFR (MDRD) Af Amer 80, Est GFR (MDRD) Non-Af 66, BUN/Creatinine Ratio 22.2 H, Glucose 81, Calcium 8.6 Current Medications Acetaminophen (Tylenol) 650 mg PO Q6H PRN PRN PRN Reason: Non-cardiac pain (mod-severe) Al Hydroxide/Mg Hydroxide (Mylanta Ii) 15 - 30 ml PO Q4H PRN PRN PRN Reason: INDIGESTION Albuterol Sulfate (Ventolin Aerosols) 2.5 mg INHALATION Q2H PRN PRN PRN Reason: dyspnea, wheezing Aspirin (Ecotrin) 325 mg PO DAILY@0800 [facility] Last Admin: 08/14/18 08:10 Dose: 325 mg Atorvastatin Calcium (Lipitor) 20 mg PO QHS [facility] Last Admin: 08/13/18 21:19 Dose: 20 mg Diltiazem HCl (Cardizem Cd) 240 mg PO DAILY [facility] Last Admin: 08/14/18 10:39 Dose: 240 mg Docusate Sodium (Colace) 100 mg PO DAILY [facility] Last Admin: 08/14/18 10:40 Dose: 100 mg Enoxaparin Sodium (Lovenox) 40 mg SC DAILY@1000 [facility] Last Admin: 08/14/18 10:39 Dose: 40 mg Fluoxetine HCl (Prozac) 10 mg PO DAILY [facility] Last Admin: 08/14/18 10:39 Dose: 10 mg Hydralazine HCl (Apresoline Iv) 10 mg IV Q4H PRN PRN PRN Reason: SBP > 160 Sodium Chloride () 1,000 mls @ 100 mls/hr IV .Q10H [facility] Last Admin: 08/14/18 07:13 Dose: 100 mls/hr Lisinopril (Zestril) 10 mg PO DAILY [facility] Last Admin: 08/14/18 10:39 Dose: 10 mg Meclizine HCl (Antivert) 25 mg PO TID [facility] Last Admin: 08/14/18 14:02 Dose: 25 mg Nitroglycerin (Nitrostat) 0.4 mg SUBLINGUAL Q5M PRN PRN Reason: CARDIAC/CHEST PAIN Ondansetron HCl (Zofran) 4 mg IV Q8H PRN PRN PRN Reason: NAUSEA/VOMITING Promethazine HCl (Phenergan) 6.25 mg IV Q4H PRN PRN PRN Reason: NAUSEA/VOMITING Sodium Chloride () 5 - 15 ml IV UD PRN PRN Reason: SALINE FLUSH Last Admin: 08/14/18 10:38 Dose: 10 ml Medical Necessity - Tobacco Use Smoking Status: Never smoker Tobacco Use: Non-smoker Assessment/Plan All Active Problems (Last Updated 10/18/17 @ 09:45 by Starr Palma) Vertigo (Acute) UTI (urinary tract infection) (Acute) Family history of colon cancer in mother (Acute) Patient is a 68-year-old lady with multiple comorbidities who presented with vertigo associated with nausea and emesis with difficulty ambulating. Admitted to regular nursing floor for symptomatic management 1. Acute vertigo do suspect BPPV. Patient has been admitted to regular nursing floor for symptomatic management as well as consultation placed to PT awaiting input. Patient underwent MRI of the head and neck which was negative for posterior seclusion CVA 2. Hypertension-blood pressure controlled, home medications continued with dose adjustment as needed 3. Dyslipidemia-patient is on statin therapy, continued at home dose 4. Depression with anxiety patient is on SSRI 5. Obesity with BMI of 30.8 6. DVT prophylaxis SC Lovenox Active Medications Acetaminophen (Tylenol) 650 mg PO Q6H PRN PRN PRN Reason: Non-cardiac pain (mod-severe) Al Hydroxide/Mg Hydroxide (Mylanta Ii) 15 - 30 ml PO Q4H PRN PRN PRN Reason: INDIGESTION Albuterol Sulfate (Ventolin Aerosols) 2.5 mg INHALATION Q2H PRN PRN PRN Reason: dyspnea, wheezing Aspirin (Ecotrin) 325 mg PO DAILY@0800 [facility] Last Admin: 08/14/18 08:10 Dose: 325 mg Atorvastatin Calcium (Lipitor) 20 mg PO QHS [facility] Last Admin: 08/13/18 21:19 Dose: 20 mg Diltiazem HCl (Cardizem Cd) 240 mg PO DAILY [facility] Last Admin: 08/14/18 10:39 Dose: 240 mg Docusate Sodium (Colace) 100 mg PO DAILY [facility] Last Admin: 08/14/18 10:40 Dose: 100 mg Enoxaparin Sodium (Lovenox) 40 mg SC DAILY@1000 [facility] Last Admin: 08/14/18 10:39 Dose: 40 mg Fluoxetine HCl (Prozac) 10 mg PO DAILY [facility] Last Admin: 08/14/18 10:39 Dose: 10 mg Hydralazine HCl (Apresoline Iv) 10 mg IV Q4H PRN PRN PRN Reason: SBP > 160 Sodium Chloride () 1,000 mls @ 100 mls/hr IV .Q10H [facility] Last Admin: 08/14/18 07:13 Dose: 100 mls/hr Lisinopril (Zestril) 10 mg PO DAILY [facility] Last Admin: 08/14/18 10:39 Dose: 10 mg Meclizine HCl (Antivert) 25 mg PO TID [facility] Last Admin: 08/14/18 14:02 Dose: 25 mg Nitroglycerin (Nitrostat) 0.4 mg SUBLINGUAL Q5M PRN PRN Reason: CARDIAC/CHEST PAIN Ondansetron HCl (Zofran) 4 mg IV Q8H PRN PRN PRN Reason: NAUSEA/VOMITING Promethazine HCl (Phenergan) 6.25 mg IV Q4H PRN PRN PRN Reason: NAUSEA/VOMITING Sodium Chloride () 5 - 15 ml IV UD PRN PRN Reason: SALINE FLUSH Last Admin: 08/14/18 10:38 Dose: 10 ml Code Visit OBSV E&M: 20925 Subsequent observation care L3
--- NOTE | 2018-08-14 15:18 | PN_ITS ---
Patient Problems: Active and Suspected Problems (Last Updated 10/18/17 @ 09:45 by Starr Palma) Vertigo (Acute) Subjective: Patient is a 68-year-old lady with multiple comorbidities who presented with vertigo associated with nausea and emesis with difficulty ambulating. Admitted to regular nursing floor for symptomatic management Objective: GENERAL: cooperative HEENT: Atraumatic; moist oral mucosa EYES; Anicteric, Normal Conjunctiva NECK; supple, normal thyroid, no distended JVD. RESPIRATORY: Diminished to auscultation bilaterally, CARDIOVASCULAR: Regular S1 S2, no audible murmurs GI: soft, non-tender, normoactive bowel sounds, : No Renal angle tenderness; EXTREMITIES: No edema, no clubbing, no cyanosis. NEURO: Awake; no lateralizing signs. SKIN: No Rash PSYCH; Normal affect Vitals/I&O's: Vital Signs Temp Pulse Resp BP Pulse Ox 98.6 F 61 16 115/59 L 98 08/14/18 15:06 08/14/18 15:06 08/14/18 15:06 08/14/18 15:06 08/14/18 15:06 Oxygen Delivery Method Room Air Weight: 81.278 kg Body Mass Index (BMI) 30.7 Intake and Output for Last 24 Hours 08/12/18 08/13/18 08/14/18 23:59 23:59 23:59 Intake Total 206 / 206 2260 / 2260 Output Total 950 / 950 1175 / 1175 Balance -744 / -744 1085 / 1085 Laboratory Results 08/13/18 16:20: Urine Color Yellow, Urine Clarity Cloudy, Urine pH 8.0, Ur Specific [place] 1.015, Urine Protein Negative, Urine Glucose (UA) Normal, Urine Ketones 15 H, Urine Occult Blood Negative, Urine Nitrite Negative, Urine Bilirubin Negative, Urine Urobilinogen Normal, Ur Leukocyte Esterase Negative, Urine RBC 0 SEEN, Urine WBC 0-5 SEEN, Ur Squamous Epith Cells 0 SEEN, Amorphous Sediment 1+, Urine Bacteria 1+, Urine Mucus 0 SEEN 08/13/18 16:30: WBC 6.8, RBC 4.22, Hgb 12.9, Hct 39.4, MCV 93.4, MCH 30.6, MCHC 32.7, RDW 13.5, RDW Differential 46.2 H, Plt Count 151, MPV 11.1, Immature Gran % (Auto) 0.100, Neut % (Auto) 73.4 H, Lymph % (Auto) 17.9 L, [place] % (Auto) 7.0, Eos % (Auto) 1.5, Baso % (Auto) 0.1, Absolute Neuts (auto) 5.0, Absolute Lymphs (auto) 1.21, Total Counted Not Reportable 08/13/18 16:30: PT 14.4, INR 1.1, APTT 29.5 08/13/18 16:30: Sodium 143, Potassium 3.8, Chloride 111 H, Carbon Dioxide 25.0, Anion Gap 7, BUN 31 H, Creatinine 0.95, Estim Creat Clear Calc 49.58, Est GFR (MDRD) Af Amer 75, Est GFR (MDRD) Non-Af 62, BUN/Creatinine Ratio 32.7 H, Glucose 100, Calcium 9.2 08/13/18 16:30: Magnesium 2.1 08/14/18 05:30: WBC 6.8, RBC 4.11 L, Hgb 12.5, Hct 39.2, MCV 95.4, MCH 30.4, MCHC 31.9 L, RDW 14.0, RDW Differential 48.3 H, Plt Count 156, MPV 11.8, Immature Gran % (Auto) 0.100, Neut % (Auto) 66.5, Lymph % (Auto) 22.6, [place] % (Auto) 9.4, Eos % (Auto) 1.3, Baso % (Auto) 0.1, Absolute Neuts (auto) 4.5, Absolute Lymphs (auto) 1.54, Total Counted Not Reportable 08/14/18 05:30: Sodium 148 H, Potassium 4.1, Chloride 115 H, Carbon Dioxide 28.0, Anion Gap 5, BUN 20 H, Creatinine 0.90, Estim Creat Clear Calc 50.23, Est GFR (MDRD) Af Amer 80, Est GFR (MDRD) Non-Af 66, BUN/Creatinine Ratio 22.2 H, Glucose 81, Calcium 8.6 Current Medications Acetaminophen (Tylenol) 650 mg PO Q6H PRN PRN PRN Reason: Non-cardiac pain (mod-severe) Al Hydroxide/Mg Hydroxide (Mylanta Ii) 15 - 30 ml PO Q4H PRN PRN PRN Reason: INDIGESTION Albuterol Sulfate (Ventolin Aerosols) 2.5 mg INHALATION Q2H PRN PRN PRN Reason: dyspnea, wheezing Aspirin (Ecotrin) 325 mg PO DAILY@0800 [facility] Last Admin: 08/14/18 08:10 Dose: 325 mg Atorvastatin Calcium (Lipitor) 20 mg PO QHS [facility] Last Admin: 08/13/18 21:19 Dose: 20 mg Diltiazem HCl (Cardizem Cd) 240 mg PO DAILY [facility] Last Admin: 08/14/18 10:39 Dose: 240 mg Docusate Sodium (Colace) 100 mg PO DAILY [facility] Last Admin: 08/14/18 10:40 Dose: 100 mg Enoxaparin Sodium (Lovenox) 40 mg SC DAILY@1000 [facility] Last Admin: 08/14/18 10:39 Dose: 40 mg Fluoxetine HCl (Prozac) 10 mg PO DAILY [facility] Last Admin: 08/14/18 10:39 Dose: 10 mg Hydralazine HCl (Apresoline Iv) 10 mg IV Q4H PRN PRN PRN Reason: SBP > 160 Sodium Chloride () 1,000 mls @ 100 mls/hr IV .Q10H [facility] Last Admin: 08/14/18 07:13 Dose: 100 mls/hr Lisinopril (Zestril) 10 mg PO DAILY [facility] Last Admin: 08/14/18 10:39 Dose: 10 mg Meclizine HCl (Antivert) 25 mg PO TID [facility] Last Admin: 08/14/18 14:02 Dose: 25 mg Nitroglycerin (Nitrostat) 0.4 mg SUBLINGUAL Q5M PRN PRN Reason: CARDIAC/CHEST PAIN Ondansetron HCl (Zofran) 4 mg IV Q8H PRN PRN PRN Reason: NAUSEA/VOMITING Promethazine HCl (Phenergan) 6.25 mg IV Q4H PRN PRN PRN Reason: NAUSEA/VOMITING Sodium Chloride () 5 - 15 ml IV UD PRN PRN Reason: SALINE FLUSH Last Admin: 08/14/18 10:38 Dose: 10 ml Medical Necessity - Tobacco Use Smoking Status: Never smoker Tobacco Use: Non-smoker Assessment/Plan All Active Problems (Last Updated 10/18/17 @ 09:45 by Starr Palma) Vertigo (Acute) UTI (urinary tract infection) (Acute) Family history of colon cancer in mother (Acute) Patient is a 68-year-old lady with multiple comorbidities who presented with vertigo associated with nausea and emesis with difficulty ambulating. Admitted to regular nursing floor for symptomatic management 1. Acute vertigo do suspect BPPV. Patient has been admitted to regular nursing floor for symptomatic management as well as consultation placed to PT awaiting input. Patient underwent MRI of the head and neck which was negative for posterior seclusion CVA 2. Hypertension-blood pressure controlled, home medications continued with dose adjustment as needed 3. Dyslipidemia-patient is on statin therapy, continued at home dose 4. Depression with anxiety patient is on SSRI 5. Obesity with BMI of 30.8 6. DVT prophylaxis SC Lovenox Active Medications Acetaminophen (Tylenol) 650 mg PO Q6H PRN PRN PRN Reason: Non-cardiac pain (mod-severe) Al Hydroxide/Mg Hydroxide (Mylanta Ii) 15 - 30 ml PO Q4H PRN PRN PRN Reason: INDIGESTION Albuterol Sulfate (Ventolin Aerosols) 2.5 mg INHALATION Q2H PRN PRN PRN Reason: dyspnea, wheezing Aspirin (Ecotrin) 325 mg PO DAILY@0800 [facility] Last Admin: 08/14/18 08:10 Dose: 325 mg Atorvastatin Calcium (Lipitor) 20 mg PO QHS [facility] Last Admin: 08/13/18 21:19 Dose: 20 mg Diltiazem HCl (Cardizem Cd) 240 mg PO DAILY [facility] Last Admin: 08/14/18 10:39 Dose: 240 mg Docusate Sodium (Colace) 100 mg PO DAILY [facility] Last Admin: 08/14/18 10:40 Dose: 100 mg Enoxaparin Sodium (Lovenox) 40 mg SC DAILY@1000 [facility] Last Admin: 08/14/18 10:39 Dose: 40 mg Fluoxetine HCl (Prozac) 10 mg PO DAILY [facility] Last Admin: 08/14/18 10:39 Dose: 10 mg Hydralazine HCl (Apresoline Iv) 10 mg IV Q4H PRN PRN PRN Reason: SBP > 160 Sodium Chloride () 1,000 mls @ 100 mls/hr IV .Q10H [facility] Last Admin: 08/14/18 07:13 Dose: 100 mls/hr Lisinopril (Zestril) 10 mg PO DAILY [facility] Last Admin: 08/14/18 10:39 Dose: 10 mg Meclizine HCl (Antivert) 25 mg PO TID [facility] Last Admin: 08/14/18 14:02 Dose: 25 mg Nitroglycerin (Nitrostat) 0.4 mg SUBLINGUAL Q5M PRN PRN Reason: CARDIAC/CHEST PAIN Ondansetron HCl (Zofran) 4 mg IV Q8H PRN PRN PRN Reason: NAUSEA/VOMITING Promethazine HCl (Phenergan) 6.25 mg IV Q4H PRN PRN PRN Reason: NAUSEA/VOMITING Sodium Chloride () 5 - 15 ml IV UD PRN PRN Reason: SALINE FLUSH Last Admin: 08/14/18 10:38 Dose: 10 ml Code Visit OBSV E&M: 87626 Subsequent observation care L3
[2018-08-14 19:57] VITALS: BP 114/56; PULSE 52; RESP 16; TEMP 36.6; O2SAT 97
[2018-08-14] MEDS: Atorvastatin Calcium 20 MG Tablet PO (21:36)
[2018-08-15 02:00] VITALS: BP 123/81; PULSE 53; RESP 18; TEMP 36.5; O2SAT 97
[2018-08-15] MEDS: 0.9% Normal Saline 1,000 ML 100 ML IV (04:47)
[2018-08-15] MEDS: Meclizine HCl 25 MG Tablet PO (05:40)
[2018-08-15 07:10] VITALS: O2SAT 94
--- NOTE | 2018-08-15 07:41 | DCINST_ITS ---
- Discharge Diagnoses Current Active Problems: Current Active and Chronic Problems (Last Updated 10/18/17 @ 09:45 by Starr Palma) Vertigo (Acute) HTN (hypertension) (Chronic) HLD (hyperlipidemia) (Chronic) Obesity (Chronic) You will use the following diet at home:: No restrictions Allergies/Adverse Reactions: Allergies latex Allergy (Verified 10/18/17 09:37) Rash Penicillins Allergy (Verified 10/18/17 09:37) Nausea/Vom/Diarrhea Medications to take at Discharge Ascorbic Acid [Vitamin C] 500 mg PO DAILY 07/06/17 Aspirin E.C. [Ecotrin] 325 mg PO DAILY@0800 07/06/17 Ca/D3/Mag Ox/Zinc/Welfare Supervisor/Laureano/Bor [Calcium 168-[id number]-Estgtusc Chw Tb] 1 ea PO BID 07/06/17 Cholecalciferol (VIT D3) [Vitamin D3] 1,000 unit PO DAILY 07/06/17 Diltiazem CD [Cardizem CD] 240 mg PO DAILY 07/06/17 Fluoxetine [Prozac] 10 mg PO DAILY 07/06/17 Lisinopril [Prinivil] 10 mg PO DAILY 07/06/17 Methylcellulose [Fiber Therapy] 500 mg PO DAILY 07/06/17 Multivit with Calcium,Iron,Min [Multiple Vitamins For Women] 1 ea PO DAILY 07/06/17 Simvastatin [Zocor] 40 mg PO QHS 07/06/17 Docusate Sodium [Colace] 100 mg PO DAILY 08/13/18 Naproxen Sodium [Aleve] 220 mg PO BID 08/13/18 Potassium Gluconate 595 mg PO DAILY 08/13/18 Vitamin E 400 unit PO DAILY 08/13/18 Meclizine HCl [Antivert] 25 mg PO TID PRN #20 tablet 08/15/18 The following prescriptions were given: Meclizine HCl [Antivert] 25 mg PO TID PRN #20 tablet PRN Reason: Vertigo Orders to be completed after discharge: Physical Therapy Evaluation Location: None Selected Primary Care Physician: Cassy Amezquita DO [Primary Care Provider] - Please follow up with your Primary Care Physician in: [place] 5-7 DAYS Test Results: Test results from this visit will be discussed in further detail at your follow- up appointment, if applicable. Proposed Discharge Date: 08/15/18
--- NOTE | 2018-08-15 07:41 | PCM.DC.SUM ---
Discharge Date and Diagnosis - Problem List Patient Problems: Active and Suspected Problems (Last Updated 10/18/17 @ 09:45 by Starr Palma) Vertigo (Acute) Date of Admission: 08/13/18 Date of Discharge: 08/15/18 - Primary Discharge Diagnosis Active and Suspected Problems (Last Updated 10/18/17 @ 09:45 by Starr Palma) Vertigo (Acute) - Secondary Discharge Diagnosis Chronic Problems (Last Updated 10/18/17 @ 09:45 by Starr Palma) HTN (hypertension) (Chronic) HLD (hyperlipidemia) (Chronic) Obesity (Chronic) Hospital Course and Treatment Imaging Results: Clinical Impression(s) from Imaging Studies Brain CT 08/13/18 15:53 IMPRESSION: Chronic involutional changes of the brain. Chronic right maxillary sinusitis. There is no intracranial hemorrhage or evidence of acute infarct. Electronically Signed: Nader Interiano MD at 17:01 EDT , Service support , Brain MRI 08/14/18 08:03 IMPRESSION: No evidence of acute infarct or hemorrhage. Electronically Signed: Tye Jorgensen MD at 10:41 EDT Tel , Service support , Head MRA 08/14/18 08:03 IMPRESSION: Normal MRA of the head Electronically Signed: Tye Jorgensen MD at 10:43 EDT Tel , Service support , Neck MRA 08/14/18 08:03 IMPRESSION: Normal bilateral cervical carotid and vertebral arteries. Electronically Signed: Tye Jorgensen MD at 10:45 EDT Tel , Service support , Summary of Care Provided: Patient is a 68-year-old lady with multiple comorbidities who presented with vertigo associated with nausea and emesis with difficulty ambulating. Admitted to regular nursing floor for symptomatic management 1. Acute vertigo do suspect BPPV. Patient has been admitted to regular nursing floor for symptomatic management as well as consultation placed to PT awaiting input. Patient underwent MRI of the head and neck which was negative for posterior circulation CVA. Patient treated symptomatically prescription written for vestibular therapy as outpatient 2. Hypertension-blood pressure controlled, home medications continued with dose adjustment as needed 3. Dyslipidemia-patient is on statin therapy, continued at home dose 4. Depression with anxiety patient is on SSRI 5. Obesity with BMI of 30.8 6. DVT prophylaxis SC Lovenox Patient Problems: Active and Suspected Problems (Last Updated 10/18/17 @ 09:45 by Starr Palma) Vertigo (Acute) Objective: GENERAL: cooperative HEENT: Atraumatic; moist oral mucosa EYES; Anicteric, Normal Conjunctiva NECK; supple, normal thyroid, no distended JVD. RESPIRATORY: Diminished to auscultation bilaterally, CARDIOVASCULAR: Regular S1 S2, no audible murmurs NEURO: Awake; no lateralizing signs. SKIN: No Rash PSYCH; Normal affect - Physical Exam Vital Signs Temp Pulse Resp BP Pulse Ox 97.7 F L 53 L 18 123/81 H 94 08/15/18 02:00 08/15/18 02:00 08/15/18 02:00 08/15/18 02:00 08/15/18 07:10 Oxygen Delivery Method Room Air Weight: 81.278 kg Body Mass Index (BMI) 30.7 Intake and Output for Last 24 Hours 08/13/18 08/14/18 08/15/18 23:59 23:59 23:59 Intake Total 206 / 206 4183 / 4183 505 / 505 Output Total 950 / 950 1525 / 1525 Balance -744 / -744 2658 / 2658 505 / 505 Discharge Diet: No Restrictions Discharge Activity: Return to Normal Activity Home Medications: Medications to take at Discharge Ascorbic Acid [Vitamin C] 500 mg PO DAILY 07/06/17 Aspirin E.C. [Ecotrin] 325 mg PO DAILY@0800 07/06/17 Ca/D3/Mag Ox/Zinc/[employer] Operator/Laureano/Bor [Calcium 714-N3-[id number] Chw Tb] 1 ea PO BID 07/06/17 Cholecalciferol (VIT D3) [Vitamin D3] 1,000 unit PO DAILY 07/06/17 Diltiazem CD [Cardizem CD] 240 mg PO DAILY 07/06/17 Fluoxetine [Prozac] 10 mg PO DAILY 07/06/17 Lisinopril [Prinivil] 10 mg PO DAILY 07/06/17 Methylcellulose [Fiber Therapy] 500 mg PO DAILY 07/06/17 Multivit with Calcium,Iron,Min [Multiple Vitamins For Women] 1 ea PO DAILY 07/06/17 Simvastatin [Zocor] 40 mg PO QHS 07/06/17 Docusate Sodium [Colace] 100 mg PO DAILY 08/13/18 Naproxen Sodium [Aleve] 220 mg PO BID 08/13/18 Potassium Gluconate 595 mg PO DAILY 08/13/18 Vitamin E 400 unit PO DAILY 08/13/18 Meclizine HCl [Antivert] 25 mg PO TID PRN #20 tablet 08/15/18 Following Prescrptions Were Given to Patient: Meclizine HCl [Antivert] 25 mg PO TID PRN #20 tablet PRN Reason: Vertigo Other Amb Orders: Physical Therapy Evaluation Location: None Selected Primary Care Physician: Cassy Amezquita DO [Primary Care Provider] - Please follow up with your Primary Care Physician in: [place] 5-7 DAYS Disposition: Home Minutes spent on discharge:: 35 Patient Condition:: Stable Medical Necessity - Tobacco Use Smoking Status: Never smoker Tobacco Use: Non-smoker Meaningful Use Info Meaningful Use Diagnoses (Choose all that apply): None applicable Code Visit Inpatient E&M: 89488 Disch Hosp
[2018-08-15 08:00] VITALS: BP 157/78; PULSE 53; RESP 18; TEMP 36.3; O2SAT 97
[2018-08-15] MEDS: Aspirin E.C. 325 MG Tablet PO (08:16)
[2018-08-15] MEDS: Enoxaparin 40 MG/0.4 ML Syringe SC (08:17)
[2018-08-15] MEDS: FLUoxetine 10 MG Capsule PO (08:17)
[2018-08-15] MEDS: dilTIAZem CD 240 MG Capsule PO (08:17)
[2018-08-15] MEDS: Lisinopril 10 MG Tablet PO (08:17)
[2018-08-15] MEDS: Docusate Sodium 100 MG Capsule PO (08:17)
[2018-08-15 09:55] VITALS: BP 136/66; PULSE 65; RESP 18; TEMP 36.4; O2SAT 96
== END 2018-08-15 09:57 | disposition home or self-care (01) | DRG 149 ==
LOC: ED 17:49 → MS3 18:29
PROVIDERS: Admitting Provider Family Medicine; Emergency Provider Emergency Medicine; Family Provider Internal Medicine; PCP Internal Medicine; Visit Provider Internal Medicine
DX: H81.10 Benign paroxysmal vertigo, unspecified ear (principal); E78.5 Hyperlipidemia, unspecified; I10 Essential (primary) hypertension; E66.9 Obesity, unspecified; Z68.30 Body mass index [BMI] 30.0-30.9, adult; F41.8 Other specified anxiety disorders
CPT/HCPCS: 36415; 70450; 70544; 70549; 70551; 80048; 81001; 83735; 85025; 85610; 85730; 93005; 94762; 97161; 97530; 99285; A9575; J7030; A4216

== ENCOUNTER → 2018-11-14 12:43 | Outpatient (CLI) | payer MEDICARE, OTHER, SELFPAY ==
[2018-11-05 09:27] VITALS: BMI 29.9
--- NOTE | 2018-11-14 12:46 | BI_ITS ---
MAMMOGRAPHY - BILATERAL SCREENING 3-D TOMOSYNTHESIS REASON FOR EXAM: Female, 68 years old. Bilateral Screening 3-D tomosynthesis PERTINENT HISTORY: Aunt with breast cancer.. TECHNIQUE: 2-D mammograms and 3-D Tomosynthesis of the breast (s) were performed. CAD was performed. COMPARISON: 11/03/2017 FINDINGS: The breast composition is composed of scattered fibroglandular density. Scattered benign calcifications are seen. No dense spiculated masses or suspicious microcalcifications are identified. No architectural distortion is identified. There is no skin thickening or retraction. There has been no significant change since the prior study. BI/SCREEN MAMM (CAD) W/LINDSEY BILAT IMPRESSION: No mammographic signs of malignancy. Routine yearly mammograms recommended. ASSESSMENT CATEGORY: BIRADS Category 2: Benign. A letter regarding these results will be sent to the patient by the facility within 30 days. FOLLOW UP RECOMMENDATION: Yearly follow up mammogram recommended. (A) Approximately 10% of breast cancers are not detected by mammography. A normal mammogram should not delay biopsy of a clinically suspicious abnormality. Electronically Signed: Steve Tai MD at 14:45 EDT , Service support ,
== END ==
PROVIDERS: Family Provider Internal Medicine; PCP Internal Medicine; Referring Provider Internal Medicine; Visit Provider Internal Medicine
DX: Z12.31 Encounter for screening mammogram for malignant neoplasm of breast (principal)
CPT/HCPCS: 77063; 77067

== ENCOUNTER → 2019-05-16 16:11 | Outpatient (CLI) | payer MEDICARE, OTHER, SELFPAY ==
[2019-02-25 13:33] VITALS: BMI 29.9
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
== END ==
LOC: MTRAD 16:13
PROVIDERS: PCP Internal Medicine; Referring Provider Anesthesiology Pain Medicine; Visit Provider Anesthesiology Pain Medicine
DX: M54.6 Pain in thoracic spine (principal)
CPT/HCPCS: 72072

== ENCOUNTER 2019-11-09 14:01 | Emergency (ER) | payer OTHER, MEDICARE, SELFPAY ==
[2019-02-25 13:33] VITALS: BMI 29.9
[2019-11-09 14:02] VITALS: BP 119/55; PULSE 78; RESP 18; TEMP 37; O2SAT 94; BMI 33.0
[2019-11-09 14:08] VITALS: O2SAT 93
--- NOTE | 2019-11-09 14:50 | EKG12_ITS ---
Test Reason : Blood Pressure : / mmHG Vent. Rate : 064 BPM Atrial Rate : 064 BPM P-R Int : 184 ms QRS Dur : 088 ms QT Int : 410 ms P-R-T Axes : 023 010 030 degrees QTc Int : 422 ms Normal sinus rhythm Normal ECG Confirmed by HECTOR MCGINNIS, OXANA ([id number]), television news video editor SREE SPICER ([id number]) on 11/12/2019 9:25:53 AM Referred By: SILVANA Confirmed By:OXANA YOUNG MD
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
[2019-11-09 16:23] VITALS: BP 112/67; PULSE 72; RESP 18; O2SAT 97
== END 2019-11-09 16:24 | disposition home or self-care (01) ==
PROVIDERS: Emergency Provider Emergency Medicine; PCP Internal Medicine
DX: S20.219A Contusion of unspecified front wall of thorax, initial encounter (principal); V49.40XA Driver injured in collision with unspecified motor vehicles in traffic accident, initial encounter; Y93.9 Activity, unspecified; Y92.9 Unspecified place or not applicable; Y99.9 Unspecified external cause status; I10 Essential (primary) hypertension; E78.5 Hyperlipidemia, unspecified; Z79.82 Long term (current) use of aspirin; Z79.1 Long term (current) use of non-steroidal anti-inflammatories (NSAID); Z79.899 Other long term (current) drug therapy
CPT/HCPCS: 71101; 93005; 99284

== ENCOUNTER → 2019-12-12 13:19 | Outpatient (CLI) | payer MEDICARE, OTHER, SELFPAY ==
--- NOTE | 2019-12-12 13:22 | BI_ITS ---
MAMMOGRAPHY - BILATERAL SCREENING 3-D TOMOSYNTHESIS REASON FOR EXAM: Female, 69 years old. Annual screening mammogram. PERTINENT HISTORY: No significant past history. TECHNIQUE: 2-D mammograms and 3-D Tomosynthesis of the breast (s) were performed. CAD was performed. COMPARISON: 11/14/2018 FINDINGS: The breast composition is Scattered benign calcifications are seen. No dense spiculated masses or suspicious microcalcifications are identified. No architectural distortion is identified. There is no skin thickening or retraction. Stable lymph nodes in both axillae. There has been no significant change since the prior study. BI/SCREEN MAMM (CAD) W/LINDSEY BILAT IMPRESSION: No mammographic signs of malignancy. Routine yearly mammograms recommended. ASSESSMENT CATEGORY: BIRADS Category 2: Benign. A letter regarding these results will be sent to the patient by the facility within 30 days. FOLLOW UP RECOMMENDATION: Yearly follow up mammogram recommended. (A) Approximately 10% of breast cancers are not detected by mammography. A normal mammogram should not delay biopsy of a clinically suspicious abnormality. Electronically Signed: Franco Elena MD at 14:54 EDT , Service support ,
--- NOTE | 2019-12-12 14:01 | BD_ITS ---
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 COMPARISON: Comparison is made with prior examination dated 07/09/2008. FINDINGS: Lumbar Spine (L1-L4): g/cm2 (0.980) / T-score (-1.5) / Z-score (0.2) Findings are suggestive of osteopenia with a low fracture risk. Left Femur Total: g/cm2 (1.021) / T-score (0.1) / Z-score (1.7) Left Femoral Neck: g/cm2 (0.894) / T-score (-1.0) / Z-score (0.7) Right Femur Total: g/cm2 (0.897) / T-score (-0.9) / Z-score (0.7) Right Femoral Neck: g/cm2 (0.826) / T-score (-1.5) / Z-score (0.2) The T-Scores on the most recent prior examination were: Lumbar Spine (L1-L4): There has been worsening of bone density since the previous examination. Left Femur Total: which represents a worsening of 11%. Right Femur Total: which represents a worsening of 16.5%. BD/Dexa Bone Density Study IMPRESSION: The patient is considered osteopenic as outlined below according to World Walker Organization (WHO) criteria with a low fracture risk. There has been worsening of bone density since the previous examination. Reference Information: The T-score is the number of standard deviations above or below the standard which is normal for young adults at their peak bone mineral density. The World Health Organization (WHO) interprets the T-scores as follows: Above -1 Normal bone density Between -1 and -2.5 Osteopenia Equal to / or below -2.5 Osteoporosis As a practical clinical guideline, osteopenia may be graded as follows: Mild -1 through -1.5 Moderate -1.6 through -2.0 Severe -2.1 through -2.4 The Z-score is the number of standard deviations above or below age-matched controls. A Z-score of less than -1.5 would be considered abnormal. References: 1. NIH Osteoporosis and Related Bone Diseases http://www.osteo.org 2. International Society for Clinical Densitometry http://www.iscd.org 3. National Osteoporosis Foundation http://www.nof.org Electronically Signed: Naldo Santos, at 12:25 EDT , Service support ,
== END ==
PROVIDERS: PCP Internal Medicine; Referring Provider Internal Medicine; Visit Provider Internal Medicine
DX: Z12.31 Encounter for screening mammogram for malignant neoplasm of breast (principal); Z78.0 Asymptomatic menopausal state
CPT/HCPCS: 77063; 77067; 77080

== ENCOUNTER → 2020-01-08 07:24 | Outpatient (CLI) | payer MEDICARE, OTHER, SELFPAY ==
--- NOTE | 2020-01-08 07:38 | MRI_ITS ---
STUDY: MRI THORACIC SPINE WITHOUT CONTRAST REASON FOR EXAM: Female, 69 years old. upper back pain x 2 yrs, no relief with injections TECHNIQUE: Standardized fat and water weighted pulse sequences were obtained in the sagittal and axial planes. COMPARISON: X-ray dated 05/16/2019. FINDINGS: Subtle abnormal 1 to 2 mm central cord signal at the T6-7 through T12 levels. Conus medullaris terminates at the L1 level. No acute fracture. No acute dislocation. No acute bone destruction. No spondylolisthesis. Slightly angular thoracic kyphosis centered at the T7 level. No significant scoliosis. Endplate spondylosis predominating at the T7, T7-8 and T8-9 levels Multilevel intervertebral disc height loss predominantly at the T6-7, T7-8 and T8-9 levels. C7-T1 shallow disc bulge. T1-2 shallow disc bulge. T8-9 shallow disc bulge. T9-10 shallow bilobed disc bulge. T10-11 shallow disc bulge. Neural foraminal narrowing predominating at T7-8 and T8-9. Additional visualized thoracic levels: No significant central canal narrowing. No disc herniation. No significant neural foraminal narrowing. Renal cysts. Minimal paraspinal muscle atrophy. Normal aorta. Visualized mediastinum unremarkable. MRI/Spine Thoracic (Routine) IMPRESSION: Subtle abnormal T2 central cord signal (nondilated syrinx versus vs. dilated central canal; consider short-term post contrast follow-up) Multilevel shallow disc bulges with disc height loss Slightly angular kyphosis centered at T7 Neural foraminal narrowing predominating at the T7-8 and T8-9 Thoracic spine osteoarthritis predominating at the T6-7, T7-8 and T8-9 Electronically Signed: Arturo Sotelo DO at 9:16 EDT Tel , Service support ,
== END ==
PROVIDERS: PCP Internal Medicine; Referring Provider Anesthesiology Pain Medicine; Visit Provider Anesthesiology Pain Medicine
DX: M51.34 Other intervertebral disc degeneration, thoracic region (principal); M47.814 Spondylosis without myelopathy or radiculopathy, thoracic region
CPT/HCPCS: 72146

== ENCOUNTER 2021-07-16 07:04 | Outpatient (CLI) | payer MEDICARE, OTHER, SELFPAY ==
--- NOTE | 2021-07-16 07:08 | CT_ITS ---
STUDY: CT BRAIN WITHOUT CONTRAST REASON FOR EXAM: Female, 71 years old. DEMENTIA RADIATION DOSAGE (If Supplied By Facility): CTDIvol = ( 44.99 ) mGy, DLP = ( 779.24 ) mGycm TECHNIQUE: Transaxial CT imaging of the brain was performed without administration of intravenous contrast material. Individualized dose optimization techniques were used for this CT. COMPARISON: Comparison is made with prior study dated 08/13/2018. FINDINGS: Normal soft tissue structures. Normal calvarium. There is mild cerebral atrophy with widening of the extra-axial spaces and ventricular dilatation. Normal white matter tracts of the cerebral hemispheres. Normal basal ganglia and thalami. Normal brainstem. Normal cerebellum. There is no intracranial hemorrhage. There are no findings of an acute ischemic infarction. Atherosclerotic calcific plaques of the cavernous portions of the internal carotid arteries bilaterally. Normal visualized paranasal sinuses. CT/Brain/Head without Contrast IMPRESSION: Chronic involutional changes of the brain. Electronically Signed: Naldo Santos MD at 13:13 EDT ,
== END 2021-07-16 23:59 | disposition home or self-care (01) ==
LOC: CT 07:06
PROVIDERS: PCP Internal Medicine; Referring Provider Internal Medicine; Visit Provider Internal Medicine
DX: G31.84 Mild cognitive impairment of uncertain or unknown etiology (principal)
CPT/HCPCS: 70450

== ENCOUNTER → 2021-12-14 | Outpatient (CLI) | payer MEDICARE, OTHER, SELFPAY ==
--- NOTE | 2021-12-14 09:39 | BI_ITS ---
MAMMOGRAPHY - BILATERAL SCREENING REASON FOR EXAM: Female, 71 years old. Routine annual screening examination. PERTINENT HISTORY: Aunts with breast cancer. TECHNIQUE: Digital bilateral breast lindsey (3D mammographic acquisition) in the CC and MLO projections. 2-D mediolateral oblique (MLO) and craniocaudad (CC) views of both breasts were obtained. CAD: Full Field Digital Mammography with Computer Added Detection was performed. COMPARISON: Comparison is made with prior study 12/12/2019 and 11/14/2018. FINDINGS: Breast Composition: There are scattered areas of fibroglandular density. There are no dominant masses or suspicious calcifications. Stable benign-appearing bilateral axillary lymph nodes. No other significant abnormalities are identified. There has been no significant change since the prior study. BI/SCRN MAMM (CAD)W/LINDSEY BILAT IMPRESSION: Stable bilateral screening mammogram. Yearly follow-up mammogram recommended. (A) ASSESSMENT CATEGORY: BIRADS Category 2: Benign. A letter regarding these results will be sent to the patient by the facility within 30 days. Approximately 10% of breast cancers are not detected by mammography. A normal mammogram should not delay biopsy of a clinically suspicious abnormality. [id number] Electronically Signed: Naldo Santos MD at 10:56 EDT ,
--- NOTE | 2021-12-14 09:49 | BD_ITS ---
STUDY: DUAL ENERGY X-RAY ABSORPTIOMETRY / DXA REASON FOR EXAM: Female, 71 years old. Z780. Patient is postmenopausal. TECHNIQUE: Bone Mineral Density (BMD) measurements of lumbar spine and bilateral hips were obtained. COMPARISON: Comparison is made with prior study dated 12/12/2019. FINDINGS: Lumbar Spine (L1-L4): g/cm2 (0.896) / T-score (-1.3) / Z-score (1.1) Findings are suggestive of osteopenia with a low fracture risk. Left Femur Total: g/cm2 (0.955) / T-score (0.1) / Z-score (1.8) Left Femoral Neck: g/cm2 (0.725) / T-score (-1.1) / Z-score (0.9) Right Femur Total: g/cm2 (0.807) / T-score (-1.1) / Z-score (0.6) Right Femoral Neck: g/cm2 (0.670) / T-score (-1.6) / Z-score (0.4) The T-Scores on the most recent prior examination were: Lumbar Spine (L1-L4): There has been worsening of bone density since the previous examination. Left Femur Total: which represents an improvement of 0.1%. Right Femur Total: which represents a worsening of 3.2%. BD/Dexa Bone Density Study IMPRESSION: The patient is considered osteopenic as outlined below according to World Walker Organization (WHO) criteria with a moderate fracture risk. There has been worsening of bone density since the previous examination. Reference Information: The T-score is the number of standard deviations above or below the standard which is normal for young adults at their peak bone mineral density. The World Health Organization (WHO) interprets the T-scores as follows: Above -1 Normal bone density Between -1 and -2.5 Osteopenia Equal to / or below -2.5 Osteoporosis As a practical clinical guideline, osteopenia may be graded as follows: Mild -1 through -1.5 Moderate -1.6 through -2.0 Severe -2.1 through -2.4 The Z-score is the number of standard deviations above or below age-matched controls. A Z-score of less than -1.5 would be considered abnormal. References: 1. NIH Osteoporosis and Related Bone Diseases www osteo.org 2. International Society for Clinical Densitometry www iscd.org 3. National Osteoporosis Foundation www nof.org Electronically Signed: Naldo Santos MD at 15:41 EDT ,
== END | disposition home or self-care (01) ==
PROVIDERS: PCP Internal Medicine; Visit Provider Internal Medicine
DX: Z12.31 Encounter for screening mammogram for malignant neoplasm of breast (principal); M85.80 Other specified disorders of bone density and structure, unspecified site; Z78.0 Asymptomatic menopausal state
CPT/HCPCS: 77063; 77067; 77080

== ENCOUNTER → 2023-12-19 | Outpatient (CLI) | payer MEDICARE, OTHER, SELFPAY ==
--- NOTE | 2023-12-19 12:56 | BI_ITS ---
MAMMOGRAPHY - BILATERAL SCREENING REASON FOR EXAM: Female, 73 years old. Routine annual screening examination. PERTINENT HISTORY: Aunts with breast cancer. TECHNIQUE: Digital bilateral breast lindsey (3D mammographic acquisition) in the CC and MLO projections. 2-D mediolateral oblique (MLO) and craniocaudad (CC) views of both breasts were obtained. CAD: Full Field Digital Mammography with Computer Added Detection was performed. COMPARISON: Comparison is made with prior study done December 14, 2021 and December 12, 2019. FINDINGS: Breast Composition: There are scattered areas of fibroglandular density. There are no dominant masses or suspicious calcifications. Stable fat-containing bilateral axillary lymph nodes. No other significant abnormalities are identified. There has been no significant change since the prior study. BI/SCRN MAMM (CAD)W/LINDSEY BILAT IMPRESSION: Stable bilateral screening mammogram. Yearly follow-up mammogram recommended. (A) ASSESSMENT CATEGORY: BIRADS Category 2: Benign. A letter regarding these results will be sent to the patient by the facility within 30 days. Approximately 10% of breast cancers are not detected by mammography. A normal mammogram should not delay biopsy of a clinically suspicious abnormality. [id number] Electronically Signed: Naldo Santos MD at 13:59 EDT ,
--- NOTE | 2023-12-19 13:14 | BD_ITS ---
STUDY: DUAL ENERGY X-RAY ABSORPTIOMETRY / DXA REASON FOR EXAM: Female, 73 years old. Z780 TECHNIQUE: Bone Mineral Density (BMD) measurements of lumbar spine and right hip were obtained. COMPARISON: Comparison is made with prior study December 14, 2021. FINDINGS: Lumbar Spine (L1-L4): g/cm2 (0.965) / T-score (-0.6) / Z-score (1.8) Findings are suggestive of normal bone density with a low fracture risk. Right Femur Total: g/cm2 (0.820) / T-score (-1.0) / Z-score (0.8) Right Femoral Neck: g/cm2 (0.669) / T-score (-1.6) / Z-score (0.5) The T-Scores on the most recent prior examination were: Lumbar Spine (L1-L4): There has been improvement of bone density since the previous examination. Right Femur Total: which represents an improvement of 1.6%. BD/Dexa Bone Density Study IMPRESSION: The patient is considered osteopenic as outlined below according to World Walker Organization (WHO) criteria with a moderate fracture risk. There has been improvement of bone density since the previous examination. Reference Information: The T-score is the number of standard deviations above or below the standard which is normal for young adults at their peak bone mineral density. The World Health Organization (WHO) interprets the T-scores as follows: Above -1 Normal bone density Between -1 and -2.5 Osteopenia Equal to / or below -2.5 Osteoporosis As a practical clinical guideline, osteopenia may be graded as follows: Mild -1 through -1.5 Moderate -1.6 through -2.0 Severe -2.1 through -2.4 The Z-score is the number of standard deviations above or below age-matched controls. A Z-score of less than -1.5 would be considered abnormal. References: 1. NIH Osteoporosis and Related Bone Diseases www osteo.org 2. International Society for Clinical Densitometry www iscd.org 3. National Osteoporosis Foundation www nof.org Electronically Signed: Naldo Santos MD at 9:46 EDT ,
== END | disposition home or self-care (01) ==
LOC: OPBD 12:54
PROVIDERS: PCP Internal Medicine; Referring Provider Internal Medicine; Visit Provider Internal Medicine
DX: Z12.31 Encounter for screening mammogram for malignant neoplasm of breast (principal); Z78.0 Asymptomatic menopausal state
CPT/HCPCS: 77063; 77067; 77080

== ENCOUNTER → 2025-01-09 | Outpatient (CLI) | payer MEDICARE, OTHER, SELFPAY ==
--- NOTE | 2025-01-09 12:45 | BI_ITS ---
EXAM: SCRN MAMM (CAD)W/LINDSEY BILAT DATE: 01/09/2025 CLINICAL HISTORY: F, Age 74 y/o , SCREENING Aunts with breast cancer. TECHNIQUE: Procedure Code: [id number] Modality: MG Procedure: SCRN MAMM (CAD)W/LINDSEY BILAT COMPARISON: Prior exam(s) dated December 19, 2023.. FINDINGS: TISSUE DENSITY: The breasts are almost entirely fatty. Bilateral Breast Mammographic Findings: No significant masses, calcifications or other abnormalities are identified. Stable small benign-appearing bilateral axillary lymph nodes. No suspicious masses, areas of developing architectural distortion, or suspicious calcifications. There has been no significant interval change. BI/SCRN MAMM (CAD)W/LINDSEY BILAT IMPRESSION: Stable screening bilateral mammogram. OVERALL FINAL ASSESSMENT BI-RADS 2: BENIGN RECOMMENDATION: Routine annual follow-up in 1 Year A letter with findings and recommendations will be mailed to the patient. Reading Location: [facility]
== END | disposition home or self-care (01) ==
PROVIDERS: PCP Internal Medicine; Referring Provider Internal Medicine; Visit Provider Internal Medicine
DX: Z12.31 Encounter for screening mammogram for malignant neoplasm of breast (principal); Z80.3 Family history of malignant neoplasm of breast
CPT/HCPCS: 77063; 77067